=== PATIENT | female | born 1980 | race Caucasian/White ===

== ENCOUNTER 2022-09-19 16:14 | Outpatient (CLI) | payer BC, SELFPAY ==
--- NOTE | 2022-09-19 16:15 | CRLHL7_ITS ---
For Patients: As a result of the Century Cures Act, medical imaging exams and procedure reports are released immediately into your electronic medical record. You may view this report before your referring provider. If you have questions, please contact your health care provider. BILATERAL SCREENING MAMMOGRAM WITH COMPUTER-AIDED DETECTION AND TOMOSYNTHESIS TECHNIQUE: CC and MLO views were obtained. These mammographic images have been obtained using full-field digital technique. These mammographic images were interpreted with the benefit of computer-aided detection. Breast Tomosynthesis was used in this interpretation. COMPARISON FILM: 09/05/21, 08/13/20, 05/06/19. FINDINGS: The breasts are heterogeneously dense, which may obscure small masses IMPRESSION: There is no radiographic evidence for malignancy. ASSESSMENT: BI-RADS Category 2: Benign RECOMMENDATION: Routine screening mammogram in 1 year. A lay language report of this examination will be provided to the patient. Isaias Collins M.D. Diagnostic Radiologist [email or web address] FANNIE/Dictated by: Isaias Collins MD @ 09/20/2022 10:51:00 AM (Electronically Signed)
== END 2022-09-19 16:15 | disposition home or self-care (01) ==
LOC: MAMMO 16:15
PROVIDERS: PCP Obstetrics & Gynecology; Referring Provider Obstetrics & Gynecology; Visit Provider Obstetrics & Gynecology
DX: Z12.31 Encounter for screening mammogram for malignant neoplasm of breast (principal); R92.2 Inconclusive mammogram
CPT/HCPCS: 77063; 77067

== ENCOUNTER 2023-01-05 07:40 | Outpatient (CLI) | payer BC, SELFPAY | END 2023-01-05 07:41 | disposition home or self-care (01) | LOC: NFLDREF 01-08 11:33 | PROVIDERS: PCP Obstetrics & Gynecology; Referring Provider Obstetrics & Gynecology; Visit Provider Obstetrics & Gynecology | DX: Z00.00 Encounter for general adult medical examination without abnormal findings (principal); Z13.6 Encounter for screening for cardiovascular disorders | CPT/HCPCS: 80061 ==

== ENCOUNTER 2023-02-21 12:54 | Outpatient (CLI) | payer BC, SELFPAY | END 2023-02-21 12:55 | disposition home or self-care (01) | PROVIDERS: PCP Obstetrics & Gynecology; Visit Provider Dermatology | DX: R21 Rash and other nonspecific skin eruption (principal) | CPT/HCPCS: 86039; 86225 ==

== ENCOUNTER 2023-12-06 11:17 | Outpatient (CLI) | payer BC, SELFPAY ==
--- NOTE | 2023-12-06 11:30 | MM_ITS ---
Patient: KEYANNA CASILLAS Facility:?[facility] Patient ID:?[id number] Site Patient [id number]:?[id number]. Site :?[id number] Study:?XRay-Breast Bilateral 3D W/CAD-12/06/2023 11:40:06 AM Ordering Physician:Preston Final Report: BILATERAL SCREENING MAMMOGRAM WITH COMPUTER-AIDED DETECTION AND TOMOSYNTHESIS TECHNIQUE: CC and MLO views were obtained. These mammographic images have been obtained using full-field digital technique. These mammographic images were interpreted with the benefit of computer-aided detection. Breast Tomosynthesis was used in this interpretation. COMPARISON FILM: 09/19/22, 09/05/21, 08/13/20. FINDINGS: The breasts are heterogeneously dense, which may obscure small masses. IMPRESSION: There is no radiographic evidence for malignancy. ASSESSMENT: BI-RADS Category 1: Negative RECOMMENDATION: Routine screening mammogram in 1 year. A lay language report of this examination will be provided to the patient. Isaias Collins M.D. Diagnostic Radiologist [email or web address] DSM/sp R& Transcribed: 12:39 p.m. SP/Dictated by: Isaias Collins MD @ 12/07/2023 9:20:00 AM Signed by:Chloe Collins MD @12/07/2023 12:41:20 PM (Electronic Signature)
== END 2023-12-06 11:18 | disposition home or self-care (01) ==
LOC: MAMMO 11:17
PROVIDERS: Visit Provider Obstetrics & Gynecology
DX: Z12.31 Encounter for screening mammogram for malignant neoplasm of breast (principal); R92.2 Inconclusive mammogram
CPT/HCPCS: 77063; 77067

== ENCOUNTER 2024-03-03 09:13 | Outpatient (CLI) | payer BC, SELFPAY ==
--- NOTE | 2024-03-03 09:48 | W.ANESCHARGE ---
Anesthesia Charges Start Date/Time Anesthesia Start Date: 03/03/24 Anesthesia Start Time: 09:45 Stop Date/Time Anesthesia Stop Date: 03/03/24 Anesthesia Stop Time: 10:32
--- NOTE | 2024-03-03 10:34 | W.ANESCHARGE ---
Anesthesia Charges Start Date/Time Anesthesia Start Date: 03/03/24 Anesthesia Start Time: 09:45 Stop Date/Time Anesthesia Stop Date: 03/03/24 Anesthesia Stop Time: 10:32
== END 2024-03-03 09:14 | disposition home or self-care (01) ==
LOC: OP CLINIC 09:14
PROVIDERS: Visit Provider Surgery
DX: Z12.11 Encounter for screening for malignant neoplasm of colon (principal); K63.5 Polyp of colon; K64.8 Other hemorrhoids
CPT/HCPCS: 00811; 00812; 45385; 88305; J2704

== ENCOUNTER 2025-01-06 13:34 | Outpatient (CLI) | payer BC, SELFPAY ==
--- NOTE | 2025-01-06 13:40 | CRLHL7_ITS ---
For Patients: As a result of the Century Cures Act, medical imaging exams and procedure reports are released immediately into your electronic medical record. You may view this report before your referring provider. If you have questions, please contact your health care provider. INDICATION: BILATERAL SCREENING MAMMOGRAM, ASYMPTOMATIC 46 F COMPARISON: 12/06/23, 09/19/22, 09/08/21 TECHNIQUE: CC and MLO views were obtained. These mammographic images have been obtained using full-field digital technique. These mammographic images were interpreted with the benefit of computer aided detection and tomosynthesis. BREAST COMPOSITION: The breasts are heterogeneously dense, which may obscure small masses. FINDINGS: No suspicious findings. ASSESSMENT: BI-RADS 1 Negative RECOMMENDATION: Annual screening mammogram. A lay language report of this examination will be provided to the patient. Dictated by: Isaias Collins MD @ 01/08/2025 13:22:17 (Electronically Signed)
== END 2025-01-06 13:35 | disposition home or self-care (01) ==
LOC: MAMMO 13:34
PROVIDERS: Visit Provider Obstetrics & Gynecology
DX: Z12.31 Encounter for screening mammogram for malignant neoplasm of breast (principal); R92.333 Mammographic heterogeneous density, bilateral breasts
CPT/HCPCS: 77063; 77067